=== PATIENT | male | born 1990 | race African-American/Black ===

== ENCOUNTER 2019-11-29 06:14 | Emergency (ER) | payer OTHER ==
[~2019-11-29] VITALS: Ht 172.7 cm; Wt 68.0 kg
[2019-11-29] MEDS ORDERED: MOBIC15 MG PO (07:38)
[2019-11-29 08:00] VITALS: BP 97/59
--- NOTE | 2019-11-29 13:11 | EKG ---
[facility] [place] [address] ELECTROCARDIOGRAM REPORT Name: CODEY JONES Room #: DEP [facility]#: [id number] Admission: 11/29/19 Attend Phys: Discharge: 11/29/19 Date of : 89 Report #: [id number] THIS REPORT FOR: cc: SHARON - [place] family physician/PCP SHARON - [place] family physician/PCP Julio Unger MD [facility] THIS REPORT FOR: //name// [facility] ED Test Date: 2019-11-29 Test Time: 07:02:10 Pat Name: CODEY JONES Department: Room: Gender: [employer] Supervisor: : 1990 Requested By: Nayeli Donohue Order Number: [id number] MD: Julio Unger Measurements Intervals [place] Rate: 50 P: -31 VT: 124 QRS: -4 QRSD: 97 T: 26 QT: 427 QTc: 390 Interpretive Statements Sinus rhythm RSR' in V1 or V2, probably normal variant ST elev, probable normal early repol pattern No previous ECG available for comparison Electronically Signed On 11-29-2019 13:11:40 CDT by Julio Unger [email or web address] <ELECTRONICALLY SIGNED> By: Julio Unger MD, FAC 11/29/19 [id number] [id number] Julio Unger MD, [facility] /EPI
== END 2019-11-29 08:02 | disposition home or self-care (01) ==
LOC: ER
DX: S46.812A Strain of other muscles, fascia and tendons at shoulder and upper arm level, left arm, initial encounter (principal); X50.1XXA Overexertion from prolonged static or awkward postures, initial encounter; Y93.89 Activity, other specified; Y92.89 Other specified places as the place of occurrence of the external cause; Y99.8 Other external cause status